=== PATIENT | male | born 1980 | race Caucasian/White ===

== ENCOUNTER 2018-07-10 12:22 | Emergency (ER) | payer MEDICAID ==
[~2018-07-10] VITALS: Ht 182.9 cm; Wt 53.0 kg
[~2018-07-10 12:22] MED LIST: NO HOME MEDS
[2018-07-10 12:51] VITALS: BP 113/72
[2018-07-10] MEDS ORDERED: vancomycin/NS 1 GM ADD-VANTAGE 250 ML IV ONE (14:45)
[2018-07-10] MEDS ORDERED: normal saline 1000ML IV soln IV ONE (14:45)
[2018-07-10 15:21] LABS: BASOPHILS # (AUTO) 0.1 X10'3 (0-0.2); BASOPHILS % (AUTO) 0.8 % (0-1); EOSINOPHILS # (AUTO) 0.1 X10'3 (0-0.9); EOSINOPHILS % (AUTO) 1.1 % (0-6); HEMATOCRIT 39.7 % (42.0-52.0); HEMOGLOBIN 13.5 g/dl (14.0-17.9); LYMPHOCYTES # (AUTO) 0.8 X10'3 (1.1-4.8); LYMPHOCYTES % (AUTO) 8.8 % (21-51); MEAN CORPUSCULAR HEMOGLOBIN 29.2 PG (27.0-31.0); MEAN CORPUSCULAR HGB CONC 33.9 % (33.0-36.5); MEAN CORPUSCULAR VOLUME 85.9 FL (78-98); MEAN PLATELET VOLUME 9.2 FL (7.4-10.4); MONOCYTES # (AUTO) 0.1 X10'3 (0-0.9); MONOCYTES % (AUTO) 1.4 % (2-12); NEUTROPHILS # (AUTO) 8.1 X10'3 (1.8-7.7); NEUTROPHILS % (AUTO) 87.9 % (42-75); PLATELET COUNT 230 X10'3 (140-440); RED BLOOD COUNT 4.62 X10'6 (4.70-6.10); RED CELL DISTRIBUTION WIDTH 12.6 % (11.5-14.5); WHITE BLOOD COUNT 9.2 X10'3 (4.5-11.0)
[2018-07-10 15:32] LABS: PARTIAL THROMBOPLASTIN TIME 29 SECONDS (22-32); PROTHROMBIN TIME 10.1 SECONDS (9.0-12.0)
[2018-07-10 15:36] LABS: ALANINE AMINOTRANSFERASE 110 U/L (12-78); ALBUMIN 4.1 G/DL (3.4-5.0); ALKALINE PHOSPHATASE 70 IU/L (46-116); ANION GAP 9 (8-16); ASPARTATE AMINO TRANSFERASE 64 U/L (10-37); BILIRUBIN,TOTAL 0.8 MG/DL (0.1-1.0); BLOOD UREA NITROGEN 22 MG/DL (7-18); BUN/CREATININE RATIO 23.7 (5.4-32.0); CALCIUM 8.9 MG/DL (8.5-10.1); CHLORIDE 99 MMOL/L (99-107); CREATININE 0.93 MG/DL (0.60-1.10); GLUCOSE 96 MG/DL (70-104); MAGNESIUM 1.9 MG/DL (1.5-2.4); POTASSIUM 4.3 MMOL/L (3.5-5.1); SODIUM 137 MMOL/L (135-145); TOTAL CARBON DIOXIDE 29.2 MMOL/L (24-32); TOTAL PROTEIN 8.3 G/DL (6.4-8.2); eGFR > 90 ML/MIN
[2018-07-10] MEDS ORDERED: SULF1TAB49 PO (16:49)
[2018-07-10] MEDS ORDERED: CEPH500C5 PO (16:49)
[2018-07-12] MEDS ORDERED: ONDA8TAB9 PO (18:52)
[2018-07-12] MEDS ORDERED: DOXY100C43 PO (18:52)
== END 2018-07-10 17:33 | disposition home or self-care (01) ==
LOC: ER 12:22
DX: L03.113 Cellulitis of right upper limb (principal); L02.511 Cutaneous abscess of right hand; F11.10 Opioid abuse, uncomplicated
CPT/HCPCS: 36415; 71045; 80053; 83605; 83735; 84145; 85025; 85610; 85730; 87040; 96365; 99285; J3370; J7030

== ENCOUNTER 2019-01-29 17:34 | Emergency (ER) | payer MEDICAID ==
[~2019-01-29] VITALS: Ht 182.9 cm; Wt 72.7 kg
[~2019-01-29 17:34] MED LIST changes: +CEPH500C5 PO; +ONDA8TAB9 PO
[2019-01-29 17:38] VITALS: BP 122/77
[2019-01-29] MEDS ORDERED: LIDOcaine 1% w/epiNEPHrine 1:200,000 30ml vial IM ONE (18:15)
[2019-01-29] MEDS ORDERED: CEPH-572 PO (18:47)
[2019-01-29] MEDS ORDERED: SULF1TAB49 PO (18:47)
[2019-01-29] MEDS ORDERED: ibuprofen tablet 400 MG TABLET PO ONE (19:10)
== END 2019-01-29 19:12 | disposition home or self-care (01) ==
LOC: ER 17:35
DX: L02.414 Cutaneous abscess of left upper limb (principal); F11.90 Opioid use, unspecified, uncomplicated
CPT/HCPCS: 10060; 99283; J3490

== ENCOUNTER 2019-03-06 00:21 | Emergency (ER) | payer MEDICAID ==
[~2019-03-06] VITALS: Ht 182.9 cm; Wt 60.5 kg
[2019-03-06 00:29] VITALS: BP 111/73
[2019-03-06] MEDS ORDERED: LIDOcaine 1% w/epiNEPHrine 1:200,000 30ml vial IM ONE (00:50)
[2019-03-06] MEDS ORDERED: SULF1TAB49 PO (01:18)
[2019-03-06] MEDS ORDERED: TETanus/Pertussis (Acell)/Diphther VAC/PF (Tdap-Adult) 0.5ml syringe IM ONE (01:25)
== END 2019-03-06 01:47 | disposition home or self-care (01) ==
LOC: ER 00:21
DX: L02.413 Cutaneous abscess of right upper limb (principal); F11.90 Opioid use, unspecified, uncomplicated; Z79.2 Long term (current) use of antibiotics; Z79.899 Other long term (current) drug therapy
CPT/HCPCS: 10060; 90471; 90715; 99283

== ENCOUNTER 2019-03-08 22:48 | Emergency (ER) | payer MEDICAID ==
[~2019-03-08] VITALS: Ht 182.9 cm; Wt 54.5 kg
[~2019-03-08 22:48] MED LIST changes: +SULF1TAB49 PO
[2019-03-08 22:50] VITALS: BP 102/61
== END 2019-03-09 00:01 | disposition home or self-care (01) ==
LOC: ER 22:48
DX: L02.413 Cutaneous abscess of right upper limb (principal); Z48.01 Encounter for change or removal of surgical wound dressing; F11.90 Opioid use, unspecified, uncomplicated; Z79.899 Other long term (current) drug therapy
CPT/HCPCS: 99282

== ENCOUNTER 2019-08-08 21:09 | Emergency (ER) | payer MEDICAID ==
[~2019-08-08] VITALS: Ht 182.9 cm; Wt 61.2 kg
[~2019-08-08 21:09] MED LIST changes: -SULF1TAB49 PO
[2019-08-08] MEDS ORDERED: proparacaine 0.5% ophthalmic drops 15ml LEFTEYE ONE (22:10)
--- NOTE | 2019-08-08 22:12 | NUR ---
PATIENT PROVIDED "GROUPS" BROCHURE FOR OPIATE ADDICTION
--- NOTE | 2019-08-08 22:20 | NUR ---
MADDIE SNIDER REMOVED FOREIGN OBJECT FROM LEFT EYE
[2019-08-08] MEDS ORDERED: CIPR2.5D18 LEFTEYE (22:31)
[2019-08-08 23:00] VITALS: BP 109/59
== END 2019-08-08 22:50 | disposition home or self-care (01) ==
LOC: ER 21:10
DX: T15.02XA Foreign body in cornea, left eye, initial encounter (principal); Z79.2 Long term (current) use of antibiotics; Z79.899 Other long term (current) drug therapy; X58.XXXA Exposure to other specified factors, initial encounter; Y93.9 Activity, unspecified; Y92.89 Other specified places as the place of occurrence of the external cause; Y99.8 Other external cause status
CPT/HCPCS: 65220; 99284

== ENCOUNTER 2020-01-06 22:43 | Emergency (ER) | payer MEDICAID ==
[~2020-01-06] VITALS: Ht 182.9 cm; Wt 77.6 kg
[~2020-01-06 22:43] MED LIST changes: -CEPH500C5 PO; +LIDOcaine 1% W/epiNEPHrine 1:100,000 20ml vial ONE
[2020-01-06 22:48] VITALS: BP 146/92
[2020-01-07] MEDS ORDERED: SULF1TAB49 PO (00:43)
[2020-01-07] MEDS ORDERED: CEPH500C5 PO (00:43)
[2020-01-07] MEDS ORDERED: sulfamethoxazole/trimethoprim DS (800/160mg) tablet PO ONE (00:45)
[2020-01-07] MEDS ORDERED: cephalexin 250mg capsule PO ONE (00:45)
== END 2020-01-07 01:06 | disposition home or self-care (01) ==
LOC: ER 22:44
DX: L02.413 Cutaneous abscess of right upper limb (principal); F11.90 Opioid use, unspecified, uncomplicated; Z79.2 Long term (current) use of antibiotics; Z79.899 Other long term (current) drug therapy
CPT/HCPCS: 10060; 99283